=== PATIENT | female | born 1990 | race Caucasian/White ===

== ENCOUNTER 2025-01-04 20:39 | Emergency (ER) | payer MEDICAID ==
[~2025-01-04] VITALS: Ht 165.1 cm; Wt 90.0 kg
[~2025-01-04 20:39] MED LIST: NO HOME MEDS
[2025-01-04 20:59] VITALS: TEMP 97.7
[2025-01-04] MEDS: ketorolac trometh 30MG/ML vial 30 MG/ML VIAL IM ONE (22:26)
[2025-01-04] MEDS: LIDOcaine 1% 30ml preserv. free vial SQ STA (22:43)
--- NOTE | 2025-01-04 23:11 | Physician Documentation ---
History of Present Illness ~ Chief Complaint: Back Pain Stated Complaint: ABD PAIN Time Seen by : 22:07 Primary Medical Doctor: [facility] 34-year-old female presents to the ED with a complaint of left flank pain that has acute onset without injury today. States that it is severe to touch her lumbar region and flank.. Denies any history of kidney stones denies any dys uria or urinary frequency or fevers. Medication Reconciliation Allergies: Coded Allergies: No Known Allergies (Unverified , 01/04/25) Scheduled Tamsulosin Hcl* (Flomax*), 1 CAP PO DAILY Scheduled PRN Hydrocodone Bit/Acetaminophen (Hydrocodone-Apap 10-325 Tablet), 1 TABLET PO Q6H PRN for pain ONDANSETRON ODT 4mg tablet (Ondansetron Odt), 1 TABLET PO Q6H PRN for nausea/vomiting Miscellaneous Medications Home Med List (No Home Medications), (Reported) Past Medical History Past Medical History: No Pertinent History Past Surgical History: no surgical history Other Past Family History: NONE Alcohol Use: None Drug Use: none Lives In: Home Review of Systems All Other Systems at this time: Reviewed and Negative ROS As stated above in the HPI, otherwise all systems are reviewed and negative. Physical Exam Physical Exam Vital Signs: Temperature: 97.7, Source: Temporal, Heart Rate: 99, Respiratory Rate: 22, BP: 182/93, Pulse Oximetry: 100, Weight: 90.000 Oxygen Flow Rate: 0 Physical Exam General: Alert, no apparent distress. Gastrointestinal: Soft, nontender, nondistended. Bowels sounds positive. cva tenderness, tender to mild palpation Neurologic: Oriented x4. Skin: Normal color, warm and dry. No edema, no ecchymosis. Progress Progress Note Patient received Toradol and presents in grossly less pain as evidenced by she has fallen asleep on the gurney. Initially she was crying and writhing in pain complaining of left flank pain. Results/Orders Results/Orders Orders - OHLNOÉ MITCHELL MD Ct Abdomen Pelvis (01/05/25 01:20) Completed Orders - NOÉ ALVAREZ MD Normal Saline 1000ml (0.9% Sodium Chlori (01/05/25 00:10) Procalcitonin (01/05/25 00:09) Morphine 4mg/Ml Inj. (Morphine Inj.) (01/05/25 00:55) Ct Abdomen Pelvis (01/05/25 01:20) Ondansetron Inj. (Zofran 4mg/2ml Vial) (01/05/25 00:55) Hydrocodone/Apap 10/325 ([place] 10/325mg (01/05/25 02:40) Medications Received in ER Medications (Trade) Dose Ordered Sig/Hui Route PRN Reason Start Time Stop Time Status Last Admin Dose Admin (Toradol inj. 30mg/ml) 30 mg ONCE ONCE IM 01/04/25 22:15 01/04/25 22:16 DC 01/04/25 22:26 30 MG (0.9% sodium chloride (NS) 1000ml IV soln) 1,000 ml ONCE ONCE IVB 01/05/25 00:10 01/05/25 00:11 DC 01/05/25 00:53 1,000 ML (morphine inj.) 4 mg ONCE ONCE IV 01/05/25 00:55 01/05/25 00:56 DC 01/05/25 00:57 4 MG (Zofran 4mg/2ml vial) 4 mg ONCE ONCE IV 01/05/25 00:55 01/05/25 00:56 DC 01/05/25 00:57 4 MG ([place] 10/325mg tab) 1 tab ONCE ONCE PO 01/05/25 02:40 01/05/25 02:44 DC 01/05/25 02:48 1 TAB Vital Signs 01/04/25 01/04/25 01/05/25 01/05/25 20:59 22:26 00:19 00:57 Temp 97.7 Pulse 99 Resp 20 22 16 16 B/P (MAP) 182/93 Pulse Ox 100 O2 Flow Rate 0 01/05/25 01/05/25 01/05/25 01/05/25 01:00 02:03 02:16 03:05 Pulse 85 70 75 Resp 16 16 16 16 B/P (MAP) 154/82 (106) 130/72 (91) 138/75 Pulse Ox 98 98 95 O2 Flow Rate 0 0 Laboratory Tests Test 01/04/25 23:01 01/04/25 23:58 White Blood Count 10.2 Red Blood Count 4.19 L Hemoglobin 13.5 Hematocrit 39.2 Mean Corpuscular Volume 93.5 Mean Corpuscular Hemoglobin 32.2 H Mean Corpuscular Hemoglobin Concent 34.5 Red Cell Distribution Width 13.0 Platelet Count 267 Mean Platelet Volume 8.7 Neutrophils (%) (Auto) 80.3 H Lymphocytes (%) (Auto) 15.4 L Monocytes (%) (Auto) 3.3 Eosinophils (%) (Auto) 0.5 Basophils (%) (Auto) 0.5 Neutrophils # (Auto) 8.2 H Lymphocytes # (Auto) 1.6 Monocytes # (Auto) 0.3 Eosinophils # (Auto) 0.0 Basophils # (Auto) 0.0 CBC Comment Sodium Level 141 Potassium Level 3.3 L Chloride Level 105 Carbon Dioxide Level 24.5 Anion Gap 12 Blood Urea Nitrogen 7 Creatinine 0.84 Estimated GFR/1.73 m2 78 BUN/Creatinine Ratio 8.3 L Glucose Level 91 Calcium Level 9.0 Total Bilirubin 1.2 H Aspartate Amino Transf (AST/SGOT) 23 Alanine Aminotransferase (ALT/SGPT) 36 Alkaline Phosphatase 75 Total Protein 7.7 Albumin 3.7 Globulin 4.0 Albumin/Globulin Ratio 0.9 L Lipase 22 Procalcitonin < 0.05 Chemistry Comments Urine Specimen Description Cln catch midstream Urine Color Brown Urine Clarity Cloudy Urine pH Urine Specific [place] Urine Protein Urine Glucose (UA) Urine Ketones Urine Occult Blood Urine Nitrite Urine Bilirubin Urine Urobilinogen Urine Leukocyte Esterase Urine RBC Tntc Urine WBC 0-4 Urine Squamous Epithelial Cells Few Urine Bacteria 2+ Urine Culture Indicated Not ind Volume Urine Centrifuged 10 ml Urine HCG, Qualitative Negative Urine Comment See note EKG/XRAY/CT/US/VASC/MRI CT : Impression Patient: AYUSH PITT Medical Record: [id number] HOSPITAL : 1990, Age: 34 Sex: Female Location: ER Patient Status: REG ER Service Date/Time: 01/05/25119 Ordering Physician: NOÉ ALVAREZ MD Exam: CT ABDOMEN PELVIS Exam: CT CT ABDOMEN PELVIS History: abdominal pain Comparison Study: None Technique: Multidetector spiral CT of the abdomen was performed from lung bases to pubic symphysis. Imaging was performed without IV contrast. Axial, coronal and sagittal multiplanar reformats were obtained from the axial data set by the technologist. Radiation Dose : 1. Abdomen/Pelvis: CTDIvol 25.01 mGy, DLP 1285.06 mGy*cm. Findings: Evaluation of solid organs is limited due to lack of intravenous contrast use. Lung Bases: No acute or significant lung base finding. Normal heart size. No pleural or pericardial effusion. Liver: The liver is enlarged, measuring 21.9 cm in craniocaudal dimension. No focal lesions. Gallbladder and Biliary Tree: Unremarkable Spleen: Unremarkable Pancreas: The pancreas is grossly normal in appearance. Adrenal Glands: Unremarkable Kidneys: Kidneys are grossly normal without calculi or hydronephrosis. Bladder: Grossly unremarkable for degree of distention. Bowel: The stomach is grossly normal in appearance. Small bowel and colon are normal in caliber and distribution. The appendix is not visualized; however, no secondary findings of acute appendicitis identified. Ascites: Absent Lymphadenopathy: No mesenteric, retroperitoneal or periportal lymphadenopathy. Abdominal Wall and Mesentery: Unremarkable. Vasculature: The visualized abdominal aorta is normal in size and caliber. Evaluation of abdominal and pelvic vessels is limited due to lack of intravenous contrast. Pelvic Organs: Unremarkable Musculoskeletal: No aggressive focal bony lesions, acute fractures or dislocation. IMPRESSION: 1. No acute abdominal or pelvic findings. 2. Hepatomegaly. Radiation optimization: All CT scans at this facility use at least one of these dose optimization techniques: automated exposure control mA and/or kV adjustment per patient size (includes targeted exams where dose is matched to clinical indication) or iterative reconstruction. Electronically Signed by:TEJ MILIAN MD Date & Time: 01/05/25212 Dictated by: TEJ MILIAN MD Dictation date and time: 01/05/25212 Primary Care Provider: NO PRIMARY CARE PROVIDER cc: NOÉ ALVAREZ MD ~ Departure Disposition: 01 HOME / SELF CARE / HOMELESS Impression: Primary Impression: Kidney stone on left side Referrals: NO PRIMARY CARE PROVIDER (PCP) Prescriptions Tamsulosin Hcl* (Flomax*) 0.4 Mg Cap.sr.24h 1 CAP PO DAILY, #10 CAP Prov: NOÉ ALVAREZ MD 01/05/25 ONDANSETRON ODT 4mg tablet (ONDANSETRON ODT) 4 Mg Tab.rapdis 1 TABLET PO Q6H PRN for nausea/vomiting, #12 TABLET Prov: NOÉ ALVAREZ MD 01/05/25 Hydrocodone Bit/Acetaminophen (Hydrocodone-Apap 10-325 Tablet) 10mg/325mg Tablet 1 TABLET PO Q6H PRN for pain, #12 TABLET Prov: NOÉ ALVAREZ MD 01/05/25 Additional Comment Additional Comment Patient was signed out to me by the mid-level the patient has a punctate kidney stone mid ureter on the left on CT scan this was not appreciated by the radiologist but I have reviewed the films and visualize a small ureteral stone 1 mm in size the patient will likely pass this patient's history is consistent with this the patient will receive a prescription for Flomax [place] Zofran and she will be discharged. The patient has been advised to return for significant worsening of her symptoms. Signature Scribe Signature: f Attestation: Scribed for Chelly Shoemaker Pilling Machine Operator by Chelly Hill NP . 01/04/25 23:54 CHELLY SHOEMAKER NP Jan 04, 2025 23:11 NOÉ ALVAREZ MD Jan 05, 2025 02:43
[2025-01-04 23:12] LABS: MEAN PLATELET VOLUME 8.7 FL (7.4-10.4); RED CELL DISTRIBUTION WIDTH 13.0 % (11.5-14.5)
[2025-01-04 23:25] LABS: CREATININE 0.84 MG/DL (0.40-0.90); TOTAL CARBON DIOXIDE 24.5 MMOL/L (24-32); eCRCL 86 ML/MIN; eGFR 78 ML/MIN
[2025-01-05 00:21] LABS: UA COLLECTION TYPE CLN CATCH MIDSTREAM
[2025-01-05 00:22] LABS: URINE HCG NEGATIVE (NEG)
[2025-01-05 00:31] LABS: SQUAMOUS EPITHELIAL CELL,UR FEW /LPF (FEW)
[2025-01-05] MEDS: normal saline 1000ML IV soln IVB ONE (00:53)
[2025-01-05] MEDS: ondansetron/PF 4mg/2ml inj IV ONE (00:57)
[2025-01-05] MEDS: morphine 4 MG/ML inj SYRINge IV ONE (00:57)
--- NOTE | 2025-01-05 02:16 | RADIOLOGY REPORT ---
Exam: CT CT ABDOMEN PELVIS History: abdominal pain Comparison Study: None Technique: Multidetector spiral CT of the abdomen was performed from lung bases to pubic symphysis. Imaging was performed without IV contrast. Axial, coronal and sagittal multiplanar reformats were obtained from the axial data set by the technologist. Radiation Dose : 1. Abdomen/Pelvis: CTDIvol 25.01 mGy, DLP 1285.06 mGy*cm. Findings: Evaluation of solid organs is limited due to lack of intravenous contrast use. Lung Bases: No acute or significant lung base finding. Normal heart size. No pleural or pericardial effusion. Liver: The liver is enlarged, measuring 21.9 cm in craniocaudal dimension. No focal lesions. Gallbladder and Biliary Tree: Unremarkable Spleen: Unremarkable Pancreas: The pancreas is grossly normal in appearance. Adrenal Glands: Unremarkable Kidneys: Kidneys are grossly normal without calculi or hydronephrosis. Bladder: Grossly unremarkable for degree of distention. Bowel: The stomach is grossly normal in appearance. Small bowel and colon are normal in caliber and distribution. The appendix is not visualized; however, no secondary findings of acute appendicitis identified. Ascites: Absent Lymphadenopathy: No mesenteric, retroperitoneal or periportal lymphadenopathy. Abdominal Wall and Mesentery: Unremarkable. Vasculature: The visualized abdominal aorta is normal in size and caliber. Evaluation of abdominal and pelvic vessels is limited due to lack of intravenous contrast. Pelvic Organs: Unremarkable Musculoskeletal: No aggressive focal bony lesions, acute fractures or dislocation. IMPRESSION: 1. No acute abdominal or pelvic findings. 2. Hepatomegaly. Radiation optimization: All CT scans at this facility use at least one of these dose optimization techniques: automated exposure control mA and/or kV adjustment per patient size (includes targeted exams where dose is matched to clinical indication) or iterative reconstruction.
[2025-01-05] MEDS ORDERED: ONDA-243 PO (02:45)
[2025-01-05] MEDS ORDERED: TAMS-55 PO (02:45)
[2025-01-05] MEDS ORDERED: HYDR-3973 PO (02:45)
[2025-01-05] MEDS: HYDROcodone/acetaminophen 10/325mg tab PO ONE (02:48)
[2025-01-05 03:05] VITALS: BP 138/75; PULSE 75; RESP 16; O2SAT 95
== END 2025-01-05 03:07 | disposition home or self-care (01) ==
LOC: ER 20:40
DX: N20.2 Calculus of kidney with calculus of ureter (principal); Z79.899 Other long term (current) drug therapy
CPT/HCPCS: 36415; 74176; 80053; 81001; 81025; 83690; 84145; 85025; 96361; 96372; 96374; 96375; 99285; J1885; J2270; J2405; J7030